=== PATIENT | male | born 2000 | race Caucasian/White ===

== ENCOUNTER 2020-05-20 13:56 | Inpatient (IN) ==
[2020-05-20] MEDS ORDERED: *HR* LORazepam 1 MG TABLET PO ONE (15:44)
[2020-05-20] MEDS ORDERED: haloperidoL 5 MG TABLET PO PRN (19:09)
[2020-05-20] MEDS ORDERED: Mag Hydrox/Al Hydrox/Simeth 30 ML UDC PO PRN (19:09)
[2020-05-20] MEDS ORDERED: *HR* LORazepam 1 MG TABLET PO PRN (19:09)
[2020-05-20] MEDS ORDERED: *HR* LORazepam 2 MG/ML VIAL IM PRN (19:09)
[2020-05-20] MEDS ORDERED: Haloperidol Lactate 5 MG/ML VIAL IM PRN (19:09)
[2020-05-20] MEDS: traZODone 50 MG TABLET PO PRN (22:10)
[2020-05-20] MEDS: Acetaminophen 325 MG TABLET PO PRN (22:11)
[2020-05-20] MEDS: hydrOXYzine pamoate 25 MG CAPSULE PO PRN (22:11)
[2020-05-21] MEDS: ARIPiprazole 5 MG TABLET PO SCH (13:06)
[2020-05-21] MEDS: traZODone 50 MG TABLET PO PRN (20:25)
[2020-05-21] MEDS: Acetaminophen 325 MG TABLET PO PRN (20:25)
[2020-05-21] MEDS: hydrOXYzine pamoate 25 MG CAPSULE PO PRN (20:25)
[2020-05-22] MEDS: ARIPiprazole 5 MG TABLET PO SCH (09:29)
[2020-05-22 10:38] VITALS: BP 120/78
[2020-05-22] MEDS: hydrOXYzine pamoate 25 MG CAPSULE PO PRN (11:45)
== END 2020-05-22 14:30 | disposition home or self-care (01) | DRG 751 ==
LOC: EMEROOARM 13:56 → 1ANU 19:02
PROVIDERS: ADMIT Psychiatry & Neurology Psychiatry; ATTEND Psychiatry & Neurology Psychiatry